=== PATIENT | male | born 1990 | race African-American/Black ===

== ENCOUNTER 2025-03-16 17:32 | Emergency (ER) | payer MEDICAID ==
[~2025-03-16] VITALS: Ht 160 cm; Wt 100.1 kg
[2025-03-17 05:36] VITALS: TEMP 97
[2025-03-17 06:28] VITALS: BP 151/69; O2SAT 98
== END 2025-03-17 08:45 | disposition home or self-care (01) ==
LOC: M ED 17:32
DX: F32.A Depression, unspecified (principal); Z59.00 Homelessness unspecified; I10 Essential (primary) hypertension; Z91.018 Allergy to other foods; Z88.8 Allergy status to other drugs, medicaments and biological substances